=== PATIENT | female | born 1990 | race Caucasian/White ===

== ENCOUNTER 2016-10-02 14:01 | Emergency (ER) | payer OTHER ==
[2016-10-02] MEDS ORDERED: IBUPROFEN 800 MG TABLET PO ONE (16:17)
--- NOTE | 2016-10-02 16:22 | ER Document Report ---
HPI - HPI Patient complains to provider of: left knee pain Onset: Other - thursday Onset/Duration: Persistent Quality of pain: Achy Pain Level: 2 Context: Pt presents to the ED with c/o left knee pain since Thursday .She denies injury, reports the knee just started hurting. She doesn't remember twisting the knee, denies trauma. Denies pmh of injury. Reports the knee feels ok at rest but increased pain with walking. Associated Symptoms: None Exacerbated by: Walking Relieved by: Other - at rest Similar symptoms previously: No Recently seen / treated by doctor: No - REPRODUCTIVE Reproductive: DENIES: : - DERM Skin Color: Normal Past Medical History - General Information source: Patient Last Menstrual Period: 09/15/16 - Social History Smoking Status: Current Some Day Smoker Chew tobacco use (# tins/day): No Frequency of alcohol use: Rare Drug Abuse: None Occupation: [employer] Family History: None Patient has suicidal ideation: No Patient has homicidal ideation: No - Medical History Medical History: Negative Renal/ Medical History: Denies: Hx Peritoneal Dialysis Past Surgical History: Reports: Hx Appendectomy - Immunizations Hx Diphtheria, Pertussis, Tetanus Vaccination: No Vertical Provider Document - CONSTITUTIONAL Agree With Documented VS: Yes Exam Limitations: No Limitations General Appearance: WD/WN, No Apparent Distress - INFECTION CONTROL TRAVEL OUTSIDE OF THE [place] IN LAST 30 DAYS: No - HEENT HEENT: Atraumatic, Normocephalic - NECK Neck: Supple - RESPIRATORY Respiratory: Breath Sounds Normal, No Respiratory Distress O2 Sat by Pulse Oximetry: 97 - CARDIOVASCULAR Cardiovascular: Regular Rate - MUSCULOSKELETAL/EXTREMETIES Musculoskeletal/Extremeties: MAEW, FROM, Tender - anterior knee ttp, no erythema , no warmth, no obvious deformity or swelling, brisk cap refill - NEURO Level of Consciousness: Awake, Alert, Appropriate Motor/Sensory: No Motor Deficit - DERM Integumentary: Warm, Dry Adult Front & Back Diagram: 1 - c/o left anterior knee pain Course - Re-evaluation Re-evalutation: 10/02/16 17:26 pt instructed on neg xray, plan of care, importance of fu with pcp for recheck and possible referral to ortho as indicated - Vital Signs Vital signs: Temp Pulse Resp BP Pulse Ox 98.5 F 71 18 122/51 L 97 10/02/16 14:12 10/02/16 14:12 10/02/16 14:12 10/02/16 14:12 10/02/16 14:12 - Diagnostic Test Radiology reviewed: Image reviewed, Reports reviewed - neg xray Discharge - Discharge Clinical Impression: Left knee pain Qualifiers: Chronicity: acute Qualified Code(s): M25.562 - Pain in left knee Condition: Stable Disposition: HOME, SELF-CARE Instructions: Ice & Elevation ([facility]), Ibuprofen (General) ([facility]) Additional Instructions: *You have been evaluated for left knee pain *Rest/Ice/Elevate *Follow up with your primary care provider within one week for recheck. *Follow up with orthopedics for continued pain-call for an appointment *Take medication as prescribed *Return to ED for worsening condition, changes, needs Prescriptions: Ibuprofen [Motrin 800 mg Tablet] 800 mg PO TID #30 tablet Forms: Return to Work Referrals: SHARAN RUDD MD [Primary Care Provider] - Follow up as needed
--- NOTE | 2016-10-02 17:20 | RADIOLOGY REPORT (SQ) ---
EXAM DESCRIPTION: KNEE LEFT 4 VIEW COMPLETED DATE/TIME: 10/02/2016 4:44 pm REASON FOR STUDY: left knee pain COMPARISON: None. NUMBER OF VIEWS: Four views. TECHNIQUE: AP, lateral, and both oblique radiographic images acquired of the left knee. LIMITATIONS: None. FINDINGS: MINERALIZATION: Normal. BONES: No acute fracture or dislocation. No worrisome bone lesions. JOINT: No effusion. SOFT TISSUES: No soft tissue swelling. No radio-opaque foreign body. OTHER: No other significant finding. IMPRESSION: NEGATIVE STUDY OF THE LEFT KNEE. NO RADIOGRAPHIC EVIDENCE OF ACUTE INJURY. TECHNICAL DOCUMENTATION: JOB ID: [id number] [employer]- All Rights Reserved
[2016-10-02 17:56] VITALS: BP 115/68
== END 2016-10-02 17:50 | disposition home or self-care (01) ==
LOC: ER 14:01
DX: M25.562 Pain in left knee (principal); F17.200 Nicotine dependence, unspecified, uncomplicated
CPT/HCPCS: 99283

== ENCOUNTER 2016-11-26 01:43 | Emergency (ER) | payer OTHER ==
[2016-11-26 02:01] VITALS: BP 114/63
[2016-11-26] MEDS ORDERED: NAPROXEN 250 MG TABLET PO ONE (02:18)
[2016-11-26] MEDS ORDERED: PREDNISONE 20 MG TABLET PO ONE (02:18)
--- NOTE | 2016-11-26 02:19 | ER Document Report ---
ED General - General Chief Complaint: Leg pain/ swelling Stated Complaint: KNEE, LEG SWELLING Time Seen by Provider: 11/26/16 02:12 Mode of Arrival: Ambulatory Notes: 26-year-old female presents with 1 month duration of left knee pain and swelling. Patient notes symptoms worsened tonight. Patient is able to ambulate but notes it hurts to walk. Denies any significant injury that she can remember. Patient was told to follow-up with orthopedics but has not done so TRAVEL OUTSIDE OF THE [place] IN LAST 30 DAYS: No - HPI Onset: Other - 1 month duration Onset/Duration: Persistent Quality of pain: Achy Severity: Mild Pain Level: 1 Associated symptoms: Leg swelling Exacerbated by: Movement, Walking Relieved by: Denies Similar symptoms previously: Yes Recently seen / treated by doctor: Yes - Related Data Allergies/Adverse Reactions: No Known Allergies Allergy (Verified 10/02/16 14:12) Past Medical History - Social History Smoking Status: Never Smoker Cigarette use (# per day): No Chew tobacco use (# tins/day): No Smoking Education Provided: No Family History: None Renal/ Medical History: Denies: Hx Peritoneal Dialysis Past Surgical History: Reports: Hx Appendectomy - Immunizations Hx Diphtheria, Pertussis, Tetanus Vaccination: No Review of Systems - Review of Systems Notes: REVIEW OF SYSTEMS: CONSTITUTIONAL : Denies fever, chills, or sweats. Denies recent illness. EENT: Denies eye, ear, throat, or mouth pain or symptoms. Denies nasal or sinus congestion or discharge. Denies throat, tongue, or mouth swelling or difficulty swallowing. CARDIOVASCULAR: Denies chest pain. Denies palpitations or racing or irregular heart beat. Denies ankle edema. RESPIRATORY: Denies cough, cold, or chest congestion. Denies shortness of breath, difficulty breathing, or wheezing. GASTROINTESTINAL: Denies abdominal pain or distention. Denies nausea, vomiting , or diarrhea. Denies blood in vomitus, stools, or per rectum. Denies black, tarry stools. Denies constipation. GENITOURINARY: Denies difficulty urinating, painful urination, burning, frequency, blood in urine, or discharge. FEMALE GENITOURINARY: Denies vaginal bleeding, heavy or abnormal periods, irregular periods. Denies vaginal discharge or odor. MUSCULOSKELETAL: Admits to left knee pain swelling SKIN: Denies rash, lesions or sores. HEMATOLOGIC : Denies easy bruising or bleeding. LYMPHATIC: Denies swollen, enlarged glands. NEUROLOGICAL: Denies confusion or altered mental status. Denies passing out or loss of consciousness. Denies dizziness or lightheadedness. Denies headache. Denies weakness or paralysis or loss of use of either side. Denies problems with gait or speech. Denies sensory loss, numbness, or tingling. Denies seizures. PSYCHIATRIC: Denies anxiety or stress. Denies depression, suicidal ideation, or homicidal ideation. ALL OTHER SYSTEMS REVIEWED AND NEGATIVE. PHYSICAL EXAMINATION: GENERAL: Well-appearing, well-nourished and in no acute distress. HEAD: Atraumatic, normocephalic. EYES: Pupils equal round and reactive to light, extraocular movements intact, conjunctiva are normal. ENT: Nares patent, oropharynx clear without exudates. Moist mucous membranes. NECK: Normal range of motion, supple without lymphadenopathy LUNGS: Breath sounds clear to auscultation bilaterally and equal. No wheezes rales or rhonchi. HEART: Regular rate and rhythm without murmurs ABDOMEN: Soft, nontender, nondistended abdomen. No guarding, no rebound. No masses appreciated. Female : deferred Musculoskeletal: Mild edema noted of the left knee no calf tenderness no inguinal tenderness, no erythema no warmth to the fluctuance. Patient appears to have a small effusion. Patient is able to ambulate with no difficulty NEUROLOGICAL: Cranial nerves grossly intact. Normal speech, normal gait. Normal sensory, motor exams PSYCH: Normal mood, normal affect. SKIN: Warm, Dry, normal turgor, no rashes or lesions noted. Dictation was performed using [employer] voice recognition software Physical Exam - Vital signs Vitals: Temp Pulse Resp BP Pulse Ox 98.4 F 67 16 114/63 99 11/26/16 02:00 11/26/16 02:00 11/26/16 02:00 11/26/16 02:00 11/26/16 02:00 Course - Re-evaluation Re-evalutation: 11/26/16 04:27 Patient will be treated with steroids anti-inflammatories for her knee pain and edema. She must follow-up with orthopedic physician for further evaluation and care. Patient states she understands and will do so After performing a Medical Screening Examination, I estimate there is LOW risk for INTRACRANIAL HEMORRHAGE, UNSTABLE SPINE FRACTURE, CENTRAL CORD SYNDROME, CAUDA EQUINA, THORACIC AORTIC DISSECTION, PNEUMOTHORAX, PERFORATED BOWEL, RUPTURED ABDOMINAL AORTIC ANEURYSM, ACUTE TENDON RUPTURE, COMPARTMENT SYNDROME, or OPEN FRACTURE, thus I consider the discharge disposition reasonable. Also, there is no evidence or peritonitis, sepsis, or toxicity. I have reevaluated this patient multiple times and no significant life threatening changes are noted. The patient and I have discussed the diagnosis and risks, and we agree with discharging home to follow-up with their primary doctor with the understanding that symptoms and presentations can change. We also discussed returning to the Emergency Department immediately if new or worsening symptoms occur. We have discussed the symptoms which are most concerning (e.g., bloody stool, fever, changing or worsening pain, vomiting) that necessitate immediate return. - Vital Signs Vital signs: Temp Pulse Resp BP Pulse Ox 98.4 F 67 16 114/63 99 11/26/16 02:00 11/26/16 02:00 11/26/16 02:00 11/26/16 02:00 11/26/16 02:00 Discharge - Discharge Clinical Impression: Swelling of left knee joint Left knee pain Qualifiers: Chronicity: acute Qualified Code(s): M25.562 - Pain in left knee Condition: Stable Disposition: HOME, SELF-CARE Instructions: Suspected Internal Knee Injury ([facility]) Prescriptions: Prednisone [Deltasone 20 mg Tablet] 3 tab PO DAILY 5 Days Referrals: MEAGAN ARRINGTON DO [ACTIVE STAFF] - Follow up tomorrow
== END 2016-11-26 02:45 | disposition home or self-care (01) ==
LOC: ER 01:43
DX: M25.562 Pain in left knee (principal); M25.462 Effusion, left knee
CPT/HCPCS: 99283; J7512

== ENCOUNTER 2017-07-20 17:07 | Emergency (ER) | payer OTHER ==
--- NOTE | 2017-07-20 19:25 | ER Document Report ---
HPI - HPI Pain Level: 1 Context: Patient is a 27 year old female who presents to the ED complaining of cough. She was referred here by her employer to be checked out and given a work note. She states that she has had symptoms for approximately a week and a half. She admits to rhinitis, sore throat, nonproductive cough. She denies any shortness of breath, dyspnea on exertion, chest pain. Otherwise healthy female - EENT EENT: REPORTS: Sore Throat - last thursday - CARDIOVASCULAR Cardiovascular: REPORTS: Chest pain - only with coughing. - RESPIRATORY Respiratory: REPORTS: Coughing - continues non productive. DENIES: Trouble Breathing - Thursday she said yes - REPRODUCTIVE LMP: 1 week Reproductive: DENIES: : Past Medical History - Social History Smoking Status: Former Smoker Chew tobacco use (# tins/day): No Frequency of alcohol use: Rare Drug Abuse: None Family History: None Patient has suicidal ideation: No Patient has homicidal ideation: No Renal/ Medical History: Denies: Hx Peritoneal Dialysis Past Surgical History: Reports: Hx Appendectomy - Immunizations Hx Diphtheria, Pertussis, Tetanus Vaccination: No Vertical Provider Document - CONSTITUTIONAL Agree With Documented VS: Yes Notes: PHYSICAL EXAM GENERAL: Alert, interacts well. HEENT: NCAT, pale conjunctiva, extraocular movements intact, pupils PERRL. external ear normal, no evidence of external auditory canal tenderness, blood/ drainage, cerumen impaction, TM intact without evidence of effusion, bulging, injection, MMM, Uvula midline. Airway patent. No evidence of tonsillar enlargement, peritonsillar abscess, retropharyngeal abscess. LUNGS: Clear to auscultation bilaterally, no wheezes, rales, or rhonchi. No respiratory distress. HEART: Regular rate and rhythm. No murmurs, gallops, or rubs. ABDOMEN: Soft, nondistended, nontender. No guarding, rebound, or rigidity.. Bowel sounds present in all 4 quadrants. EXTREMITIES: Moves all 4 extremities spontaneously. No edema, radial and dorsalis pedis pulses 2/4 bilaterally. No cyanosis. NEUROLOGICAL: Alert and oriented x4. Normal speech. PSYCH: Normal affect, normal mood. SKIN: Warm, dry, normal turgor. No rashes or lesions noted. - INFECTION CONTROL TRAVEL OUTSIDE OF THE [place] IN LAST 30 DAYS: No - RESPIRATORY O2 Sat by Pulse Oximetry: 100 Course - Re-evaluation Re-evalutation: 07/20/17 20:32 Patient is a 27-year-old female is hemodynamically stable, no acute distress and afebrile. Presentation is most consistent with a viral upper respiratory infection. Patient is overall well appearance, vitals within normal limits, well-hydrated. Patient denies any headache, neck pain, and has no evidence of meningismus on examination. Lungs are clear bilaterally. No evidence of respiratory distress. Based on clinical exam and history, I do not suspect an acute pneumonia, meningitis, strep pharyngitis, or an acute encephalitis. Chest x-ray without any evidence of acute infiltrate. No laboratory or imaging testing is indicated at this time. Will discharge patient with return precautions and followup recommendations. They are in agreement this plan have verbalized understanding return precautions. - Vital Signs Vital signs: Temp Pulse Resp BP Pulse Ox 98.5 F 68 16 114/71 100 07/20/17 17:32 07/20/17 17:32 07/20/17 17:32 07/20/17 17:32 07/20/17 17:32 - Diagnostic Test Radiology reviewed: Image reviewed, Reports reviewed Discharge - Discharge Clinical Impression: URI (upper respiratory infection) Qualifiers: URI type: unspecified viral URI Qualified Code(s): J06.9 - Acute upper respiratory infection, unspecified Condition: Good Disposition: HOME, SELF-CARE Additional Instructions: Your symptoms are most likely due to a viral infection it should resolve over the next 7-14 days. For nasal congestion: I would recommend that you get over- the-counter oxymetazoline also known is afrin. Use only per bottle instructions and be sure to never use this for more than 3 days if you can develop severe rebound congestion. You may also use tylenol or ibuprofen as needed for aches and thorat discomfort. Please be sure to drink plenty of fluids and get rest. Return to the emergency department he began having difficulty breathing, chest pain, persistent vomiting, or any other symptoms that are concerning to you. It is also recommended that you start an [id number] antihistamine with decongestant such as Kimberly-D, Claritin-D to help with postnasal drip symptoms Forms: Return to Work Referrals: SHARAN RUDD MD [Primary Care Provider] - Follow up in 1 week
--- NOTE | 2017-07-20 20:10 | RADIOLOGY REPORT (SQ) ---
EXAM DESCRIPTION: CHEST PA/LAT COMPLETED DATE/TIME: 07/20/2017 7:34 pm REASON FOR STUDY: cough COMPARISON: 08/09/2008 EXAM PARAMETERS: NUMBER OF VIEWS: two views TECHNIQUE: Digital Frontal and Lateral radiographic views of the chest acquired. RADIATION DOSE: NA LIMITATIONS: none FINDINGS: LUNGS AND PLEURA: No opacities, masses or pneumothorax. No pleural effusion. MEDIASTINUM AND HILAR STRUCTURES: No masses or contour abnormalities. HEART AND VASCULAR STRUCTURES: Heart normal size. No evidence for failure. BONES: No acute findings. HARDWARE: None in the chest. OTHER: No other significant finding. IMPRESSION: NO SIGNIFICANT RADIOGRAPHIC FINDING IN THE CHEST. TECHNICAL DOCUMENTATION: JOB ID: [id number]- All Rights Reserved Reading location - IP/workstation name: [email or web address]
[2017-07-20 20:41] VITALS: BP 106/67
== END 2017-07-20 20:41 | disposition home or self-care (01) ==
LOC: ER 17:07
DX: J06.9 Acute upper respiratory infection, unspecified (principal); R05 Cough; J31.0 Chronic rhinitis; J02.9 Acute pharyngitis, unspecified; Z87.891 Personal history of nicotine dependence
CPT/HCPCS: 71046; 99283

== ENCOUNTER 2017-11-15 20:10 | Emergency (ER) | payer OTHER ==
[2017-11-15] MEDS ORDERED: CYCLOBENZAPRINE HCL 10 MG TABLET PO ONE (21:22)
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
[2017-11-15] MEDS ORDERED: HYDROCODONE/ACETAMINOPHEN 5-325 MG (6 TAB/ER DISP) PO PRN (22:32)
[2017-11-15 23:02] VITALS: BP 103/66
== END 2017-11-15 22:45 | disposition home or self-care (01) ==
LOC: ER 20:10
DX: M54.2 Cervicalgia (principal); M54.89 Other dorsalgia; R20.0 Anesthesia of skin; R20.2 Paresthesia of skin; V49.00XA Driver injured in collision with unspecified motor vehicles in nontraffic accident, initial encounter; Y92.481 Parking lot as the place of occurrence of the external cause; F17.200 Nicotine dependence, unspecified, uncomplicated
CPT/HCPCS: 72070; 99283

== ENCOUNTER 2019-02-20 23:44 | Emergency (ER) | payer OTHER ==
[2019-02-21] MEDS ORDERED: LIDOCAINE 1% INJ-PF (10 MG/ML) 30 ML SDV INJ ONE (00:28)
[2019-02-21] MEDS ORDERED: DIPH/PERTUSS(ACELL)/TETANUS VAC/PF 0.5 ML SYR (>=10YO) IM ONE (00:40)
--- NOTE | 2019-02-21 00:52 | ER Document Report ---
HPI - HPI Time Seen by Provider: 02/21/19 00:23 Pain Level: 4 Notes: Patient is a 28-year-old female no significant past medical history presents complaining of plantar foot laceration by a kitchen knife prior to arrival. Patient states that she is cutting an apple when the knife fell the floor and somehow she cut her plantar foot by stepping on it. Patient states that the knife did not go deep, but did get the skin. She has been able to ambulate, but has pain in that area. The knife was otherwise clean. Unknown last tetanus. Denies drug allergies. Denies any headache, fever, neck pain, URI, sore throat, chest pain, palpitations, syncope, cough, shortness of breath, wheeze, dyspnea, abdominal pain, nausea/vomiting/diarrhea, urinary retention, dysuria, hematuria, loss of control of bowel or bladder, numbness/tingling, muscle paralysis/weakness, or rash. - ROS Systems Reviewed and Negative: Yes All other systems reviewed and negative - REPRODUCTIVE Reproductive: DENIES: : Past Medical History - Social History Smoking Status: Current Every Day Smoker Chew tobacco use (# tins/day): No Frequency of alcohol use: Rare Drug Abuse: None Family History: None Patient has suicidal ideation: No Patient has homicidal ideation: No Renal/ Medical History: Denies: Hx Peritoneal Dialysis Past Surgical History: Reports: Hx Appendectomy - Immunizations Hx Diphtheria, Pertussis, Tetanus Vaccination: No Vertical Provider Document - CONSTITUTIONAL Agree With Documented VS: Yes Notes: PHYSICAL EXAMINATION: GENERAL: Well-appearing, well-nourished and in no acute distress. LUNGS: Breath sounds clear to auscultation bilaterally and equal. No wheezes rales or rhonchi. HEART: Regular rate and rhythm without murmurs, rubs, gallops. Musculoskeletal: Rt foot/ankle: No ecchymosis, swelling, or deformity. FROM to passive/active. Strength 5+/5. N/V intact distal. No bony tenderness of the foot. + superficial, linear, narrow laceration noted. No active bleeding. No obvious foreign body. Extremities: No cyanosis, clubbing, or edema b/l. Peripheral pulses 2+. Capillary refill less than 3 seconds. NEUROLOGICAL: Normal speech, limping gait. Normal sensory, motor exams PSYCH: Normal mood, normal affect. SKIN: see above - INFECTION CONTROL TRAVEL OUTSIDE OF THE [place] IN LAST 30 DAYS: No Course - Re-evaluation Re-evalutation: 02/21/19 Patient is an afebrile, well-hydrated, 28-year-old female who presents to the ED with a laceration to her rt plantar foot. Vitals are acceptable. PE is otherwise unremarkable for any neurovascular compromise, obvious tendon/ligament rupture, obvious fracture/dislocation, septic joint. Patient is nontoxic-appearing and is tolerating p.o. without difficulties. Wound was thoroughly irrigated and cleansed. Wound edges were approximated appropriately utilizing 3 simple interrupted sutures. Wound dressing was placed and wound instructions reviewed. Patient tolerated procedure well without any complications. Tetanus was updated today. No further labs or imaging warranted. Sutures will need removed in 10-12 days. Recheck with your PCM in 2-3 days. Consider consult orthopedics if needed. Return to the ED with any worsening/concerning symptoms otherwise as reviewed in discharge. Patient is in agreement. - Vital Signs Vital signs: Temp Pulse Resp BP Pulse Ox 98.1 F 67 14 106/42 L 100 02/20/19 23:49 02/20/19 23:49 02/20/19 23:49 02/20/19 23:49 02/20/19 23:49 Procedures - Laceration/Wound Repair Right Foot Wound length (cm): 2 Wound's Depth, Shape: Superficial, Linear Laceration pre-procedure: Sterile PPE donned, Sterile drapes applied, Other - chlorhexadine/saline Anesthetic type: 1% Lidocaine Volume Anesthetic (mLs): 4 Wound explored: Clean, No foreign body removed Irrigated w/ Saline (mLs): 200 Wound Repaired With: Sutures Suture Size/Type: 4:0, Nylon Number of Sutures: 3 Layer Closure?: No Post-procedure wound care: Sterile dressing applied Post-procedure NV exam normal: Yes Complications: No Discharge - Discharge Clinical Impression: Laceration of right foot Qualifiers: Encounter type: initial encounter Qualified Code(s): S91.311A - Laceration without foreign body, right foot, initial encounter Condition: Stable Disposition: HOME, SELF-CARE Instructions: Antibiotic Ointment Protection ([facility]), Laceration Care ([facility]), Soap Cleansing ([facility]), Tetanus Immunization Given ([facility]) Additional Instructions: Do not shower or bathe for 24 hours. After 24 hours you may shower but no submersion of the wound under water. Keep the original dressing on the wound for 24 hours unless the drainage soaks through. Change the dressing daily thereafter and keep the knots of the suture material clean from any dried discharge. You may leave the wound open to the air once there is no more discharge. See your PCM in 2-3 days for a recheck. Monitor for any signs of worsening pain or redness, purulent drainage, streaks, and/or fever. Return to the ED if noticing any of the above symptoms or as needed. Take medications as directed. Your sutures will need to be removed in 10-12 days. Prescriptions: Cephalexin Monohydrate [Keflex 500 mg Capsule] 500 mg PO TID #21 capsule Forms: Smoking Cessation Education, Return to Work Referrals: SHARAN RUDD MD [Primary Care Provider] - Follow up as needed MARJORIE ESPINOSA JR, DO [ACTIVE PROVISIONAL STAFF] - Follow up as needed
[2019-02-21 02:31] VITALS: BP 101/62
== END 2019-02-21 02:31 | disposition home or self-care (01) ==
LOC: ER 23:44
DX: S91.311A Laceration without foreign body, right foot, initial encounter (principal); W26.0XXA Contact with knife, initial encounter; Y93.G1 Activity, food preparation and clean up; F17.200 Nicotine dependence, unspecified, uncomplicated; Z23 Encounter for immunization
CPT/HCPCS: 90471; 90715; 99282

== ENCOUNTER 2019-03-23 08:52 | Emergency (ER) | payer OTHER ==
[2019-03-23] MEDS ORDERED: ONDANSETRON HCL INJ/PF 4 MG/2 ML SDV IV ONE (09:05)
[2019-03-23] MEDS ORDERED: NORMAL SALINE 1000 ML 1,000 ML IV ONE ×2 (09:08→19:53)
--- NOTE | 2019-03-23 09:09 | ER Document Report ---
ED Medical Screen (RME) - General Chief Complaint: possible syncope Stated Complaint: SYNCOPE Time Seen by Provider: 03/23/19 09:04 Primary Care Provider: SHARAN RUDD MD [Primary Care Provider] - Follow up as needed Notes: Patient is a 28-year-old female who presents to the emergency department for a possible syncopal episode. Patient went to work yesterday feeling fine and she had an hour of feeling nauseous. She did not end up throwing up. She went home and had some chicken noodle soup. She went to sleep and when she woke up she had urinated on herself and also had a dry mouth and bloody nose. Patient states that she just finished her last menstrual cycle and she states that it was quite heavy. Patient denies any pain at this time. Exam: Soft, nontender abdomen. Awake alert and oriented. I have greeted and performed a rapid initial assessment of this patient. A comprehensive ED assessment and evaluation of the patient, analysis of test results and completion of medical decision making process will be conducted by an additional ED providers. TRAVEL OUTSIDE OF THE [place] IN LAST 30 DAYS: No - Related Data Allergies/Adverse Reactions: No Known Allergies Allergy (Verified 03/23/19 09:08) Home Medications: Ibuprofen Past Medical History - Social History Frequency of alcohol use: None Drug Abuse: None Renal/ Medical History: Denies: Hx Peritoneal Dialysis Past Surgical History: Reports: Hx Appendectomy - Immunizations Hx Diphtheria, Pertussis, Tetanus Vaccination: No Physical Exam - Vital signs Vitals: Temp Pulse Resp BP Pulse Ox 98.5 F 55 L 20 116/55 L 98 03/23/19 08:56 03/23/19 08:56 03/23/19 08:56 03/23/19 08:56 03/23/19 08:56 Course - Vital Signs Vital signs: Temp Pulse Resp BP Pulse Ox 98.5 F 55 L 18 95/57 L 98 03/23/19 08:56 03/23/19 08:56 03/23/19 21:01 03/23/19 21:01 03/23/19 21:01 - Laboratory Result Diagrams: 03/23/19 09:58 03/23/19 09:58 Laboratory results interpreted by me: 03/23/19 03/23/19 03/23/19 09:58 09:58 09:58 WBC 3.4 L Glucose 73 L Leukocyte Esterase Rfl SMALL H Doctor's Discharge - Discharge Clinical Impression: Syncope, Bradycardia Referrals: SHARAN RUDD MD [Primary Care Provider] - Follow up as needed
--- NOTE | 2019-03-23 09:28 | ER Document Report ---
ED Syncope and Near Syncope <JOSEPHWILLIADAM - Last Filed: 03/24/19 03:03> - General TRAVEL OUTSIDE OF THE [place] IN LAST 30 DAYS: No - Related Data Home Medications: Ibuprofen <NING SUBRAMANIAN - Last Filed: 03/24/19 14:07> - General Chief Complaint: Syncope Stated Complaint: SYNCOPE Time Seen by Provider: 03/23/19 09:04 Primary Care Provider: SHARAN RUDD MD [Primary Care Provider] - Follow up as needed Notes: 28-year-old female presents with possible syncopal episode. Patient states yesterday she was at work when she became nauseous, this lasted approximately 1 hour. Patient states she came home and had chicken noodle soup. Patient states she went to the bathroom and woke up on the floor, with bloody nose having urinated on herself. Patient states she became nauseous again this morning and was in bathroom when she woke up again on floor with her mother over. Patient states she has had episodes of near syncope as a teenager when she would not eat enough. Patient denies any chest pain, dyspnea, vomiting, fevers. (NING SUBRAMANIAN) - Related Data Allergies/Adverse Reactions: No Known Allergies Allergy (Verified 03/23/19 09:08) Past Medical History - Social History Smoking Status: Current Some Day Smoker Frequency of alcohol use: None Drug Abuse: None Family History: None Patient has suicidal ideation: No Patient has homicidal ideation: No Renal/ Medical History: Denies: Hx Peritoneal Dialysis Past Surgical History: Reports: Hx Appendectomy - Immunizations Hx Diphtheria, Pertussis, Tetanus Vaccination: No <NING SUBRAMANIAN - Last Filed: 03/24/19 14:07> Review of Systems <NING SUBRAMANIAN - Last Filed: 03/24/19 14:07> - Review of Systems Notes: Constitutional: Negative for fever. HENT: Negative for sore throat. Eyes: Negative for visual changes. Cardiovascular: Negative for chest pain. Respiratory: Negative for shortness of breath. Gastrointestinal: Positive for nausea. Negative for abdominal pain, vomiting or diarrhea. Genitourinary: Negative for dysuria. Musculoskeletal: Negative for back pain. Skin: Negative for rash. Neurological: Positive for syncope. Negative for headaches, weakness or numbness. 10 point ROS negative except as marked above and in HPI. (NING SUBRAMANIAN) Physical Exam <NING SUBRAMANIAN - Last Filed: 03/24/19 14:07> - Vital signs Vitals: Temp Pulse Resp BP Pulse Ox 98.5 F 55 L 20 116/55 L 98 03/23/19 08:56 03/23/19 08:56 03/23/19 08:56 03/23/19 08:56 03/23/19 08:56 - Notes Notes: GENERAL: Well-appearing, well-nourished and in no acute distress. HEAD: Atraumatic, normocephalic. EYES: Pupils equal round and reactive to light, extraocular movements intact, sclera anicteric, conjunctiva are normal. ENT: Oropharynx clear without exudates. Moist mucous membranes. NECK: Normal range of motion, supple without lymphadenopathy or JVD. LUNGS: Breath sounds clear to auscultation bilaterally and equal. No wheezes rales or rhonchi. HEART: Regular rate and rhythm without murmurs, rubs or gallops. ABDOMEN: Soft, nontender. No guarding, no rebound. No masses appreciated. EXTREMITIES: Normal range of motion, no pitting or edema. No clubbing or cyanosis. NEUROLOGICAL: Cranial nerves II through XII grossly intact. Normal speech, normal gait. No facial droop. No tongue deviation. Sensory intact bilaterally. Power Plant Electrician strength equal bilaterally. Upper/lower extremity strength equal bilaterally. PSYCH: Normal mood, normal affect. SKIN: Warm, Dry, normal turgor, no rashes or lesions noted. (NING SUBRAMANIAN) Course - Laboratory Result Diagrams: 03/23/19 09:58 03/23/19 09:58 <ADAM HARTMAN - Last Filed: 03/24/19 03:03> - Laboratory Result Diagrams: 03/23/19 09:58 03/23/19 09:58 <NING SUBRAMANIAN - Last Filed: 03/24/19 14:07> - Re-evaluation Re-evalutation: 03/23/19 22:00 Patient's blood pressure was initially in the 80s when I evaluated her at bedside initially, however she has responded to IV fluids. Her heart rate is currently 59, blood pressure 106 systolic, patient is currently asymptomatic. Reportedly earlier patient had a heart rate showing bradycardia down to 32, her lowest recorded blood pressure here is 79, she did receive atropine 0.5 mg IV once but she is not currently requiring pacing. She has no current complaints. 03/23/19 22:25 I have discussed with patient, because of delay in transfer patient is requesting transfer to [place], I did call and speak with Dr. Gilliam cardiology, he does accept patient for transfer. They will call back with the bed assignment. Patient states appreciation and agreement. 03/24/19 03:04 Patient has been rechecked twice without decompensation, she did get lightheaded once but did not develop hypotension, severe bradycardia, diaphoresis, or chest pain. Transport team is now at bedside, she is going to [place], no sign ificant change from prior, patient reevaluated bedside at this time. Stable for transport. (ADAM HARTMAN) 03/23/19 Presentation of syncope of unclear etiology. Patient normotensive, alert, without focal neurologic deficits at time of arrival. Denies syncope was during exertion. No preceding symptoms of palpitations, chest pain, or shortness of breath. Patient asymptomatic at time of arrival. *Patient denies any family history of sudden cardiac , personal history of of structural heart disease. Patient denies any symptoms to suggest an acute PE, DE, TAD, SAH, seizure, or acute GI bleed as the etiology of their syncope today. On exam, no murmurs to suggest critical aortic stenosis as possible etiology. Based on overall clinical history, exam findings, vitals, and patients appearance, I feel it is safe for patient to be discharged home at this time with close outpatient follow-up and strict return precautions. Patient is in agreement with this plan, has verbalized indications for return to ED, and questions have been answered. 03/23/19 09:58 EKG shows sinus bradycardia at 42 without evidence of HCOM, right heart strain, ST changes to suggest ischemia, prolong QTc, delta wave, epsilon wave, or Brugada syndrome. 03/23/19 10:15 HR in 30s. Crash cart to room. Pt placed on pacer pads. 03/23/19 10:24 Discussed with attending, Dr. Natarajan. Recommends 0.5 mg of atropine, 1 L bolus, and 3 page rhythm strip. Orders placed and RN asked for 3 page rhythm strip. 03/23/19 11:02 HR improved to 60-70. 03/23/19 11:06 Discussed with hospitalist, Dr. Frank, who requested calf skinner be called since pt may require pacemaker and requested be called back. 03/23/19 11:10 Spoke to calf skinner, Dr. Davis, who states pt needs to go to a place with EP. Called hospitalist who agrees. 03/23/19 11:15 Discussed transfer to pt and pt's mother. Agreeable with plan of care. Transfer center at [facility] contacted. Spoke to Wayne who will page out to EP. 03/23/19 12:[address] Luis Lux, calf skinner at [facility], who accepted pt for transfer to tele bed. Wayne at transfer center states they will call back with bed assignment and to call back if pt deteriorates. 03/23/19 17:25 Pt's HR continuing to stay in 50-60s. Pt reports irritation to pacer pads and requesting to take them off due to allergy. Removed for now but RN will continue to monitor and if HR drops below 50 pacer pads to be placed back on. (NING SUBRAMANIAN) - Vital Signs Vital signs: Temp Pulse Resp BP Pulse Ox 98.4 F 57 L 16 118/57 L 98 03/24/19 02:50 03/24/19 02:50 03/24/19 02:50 03/24/19 02:50 03/24/19 02:50 - Laboratory Laboratory results interpreted by me: 03/23/19 03/23/19 03/23/19 09:58 09:58 09:58 WBC 3.4 L Glucose 73 L Leukocyte Esterase Rfl SMALL H Discharge <ADAM HARTMAN - Last Filed: 03/24/19 03:03> <NING SUBRAMANIAN - Last Filed: 03/24/19 14:07> - Discharge Clinical Impression: Bradycardia Syncope Qualifiers: Syncope type: unspecified Qualified Code(s): R55 - Syncope and collapse Disposition: [facility] Referrals: SHARAN RUDD MD [Primary Care Provider] - Follow up as needed
[2019-03-23] MEDS ORDERED: ATROPINE SULFATE INJ 1 MG/1 ML VIAL IV ONE (10:12)
[2019-03-23] MEDS ORDERED: ATROPINE SULFATE INJ 0.4 MG/1 ML VIAL IV ONE (10:15)
[2019-03-23 10:21] LABS: ABSOLUTE EOSINOPHILS # (AUTO) 0.1 10^3/uL (0.0-0.6); ABSOLUTE LYMPHOCYTES (AUTO) 1.1 10^3/uL (0.5-4.7); ABSOLUTE MONOCYTES (AUTO) 0.2 10^3/uL (0.1-1.4); BASOPHILS % (AUTO) 0.6 % (0-2); EOSINOPHILS % (AUTO) 1.5 % (0-6); HEMATOCRIT 39.7 % (36.0-47.0); HEMOGLOBIN 13.6 g/dL (12.0-15.5); LYMPHOCYTES % (AUTO) 33.1 % (13-45); MEAN CORPUSCULAR HEMOGLOBIN 30.7 pg (27.0-33.4); MEAN CORPUSCULAR HGB CONC 34.2 g/dL (32.0-36.0); MEAN CORPUSCULAR VOLUME 90 fl (80-97); MONOCYTES % (AUTO) 6.3 % (3-13); PLATELET COUNT 161 10^3/uL (150-450); RED BLOOD COUNT 4.43 10^6/uL (3.72-5.28); RED CELL DISTRIBUTION WIDTH 13.8 % (11.5-14.0); SEGMENTED NEUTROPHILS % (AUTO) 58.5 % (42-78); TOTAL CELLS COUNTED % (AUTO) 100 %; WHITE BLOOD COUNT 3.4 10^3/uL (4.0-10.5)
[2019-03-23 10:26] LABS: APPEARANCE,URINE CLEAR; BILIRUBIN,URINE NEGATIVE (NEGATIVE); COLOR,URINE YELLOW; GLUCOSE, URINE NEGATIVE (NEGATIVE); KETONES,URINE NEGATIVE (NEGATIVE); PROTEIN,URINE NEGATIVE (NEGATIVE); URINE SPECIFIC GRAVITY 1.014; UROBILINOGEN,URINE NEGATIVE mg/dL (<2.0)
[2019-03-23 10:40] LABS: ALBUMIN 4.1 g/dL (3.5-5.0); ALKALINE PHOSPHATASE 43 U/L (38-126); ANION GAP 6 (5-19); ASPARTATE AMINO TRANSFERASE 19 U/L (14-36); BLOOD UREA NITROGEN 12 mg/dL (7-20); CALCIUM 9.1 mg/dL (8.4-10.2); CARBON DIOXIDE 28 mmol/L (22-30); CHLORIDE 105 mmol/L (98-107); GLUCOSE 73 mg/dL (75-110)
--- NOTE | 2019-03-23 13:41 | EKG REPORT ---
SEVERITY:- OTHERWISE NORMAL ECG - SINUS BRADYCARDIA : Confirmed by: Wes Mahoney MD 23-Mar-2019 13:40:44
[2019-03-24 03:05] VITALS: BP 118/57
== END 2019-03-24 03:10 | disposition short-term general hospital (02) ==
LOC: ER 08:52
DX: R55 Syncope and collapse (principal); I51.9 Heart disease, unspecified; R00.1 Bradycardia, unspecified; R11.0 Nausea; F17.200 Nicotine dependence, unspecified, uncomplicated
CPT/HCPCS: 93005; 99285; 96361; 96374; 96375; 36415; 83690; 83735; 84703; 85025; 80053; 81001; 84484; 93010; J0461; J2405; J7030

== ENCOUNTER 2019-04-01 09:09 | Emergency (ER) | payer OTHER ==
[2019-04-01] MEDS ORDERED: NORMAL SALINE 1000 ML 1,000 ML IV ONE ×2 (09:29→16:38)
[2019-04-01] MEDS ORDERED: RINGERS SOLUTION,LACTATED 1,000 ML IV ONE (09:30)
--- NOTE | 2019-04-01 09:37 | ER Document Report ---
ED Medical Screen (RME) - General Chief Complaint: Passed Out Prior to Arrival Stated Complaint: NAUSEA,DIZZY Time Seen by Provider: 04/01/19 09:28 Primary Care Provider: SHARAN RUDD MD [Primary Care Provider] - Follow up as needed Mode of Arrival: Ambulatory Information source: Patient Notes: 28-year-old female presents to ED for syncopal episode this morning. She had a syncopal episode last week and was transferred to [facility] and was discharged home with a heart monitor and medications. Patient states the prescribed her theodur she could not afford to peanut picker. Patient states she just had a bowel movement this morning when she did pass out this morning but she had had this already previously. Patient is alert and oriented she did vagal while getting her IV started and became very pale but is back to her normal color after taking deep breaths. I have greeted and performed a rapid initial assessment of this patient. A comprehensive ED assessment and evaluation of the patient, analysis of test results and completion of medical decision making process will be conducted by an additional ED providers. TRAVEL OUTSIDE OF THE [place] IN LAST 30 DAYS: No - Related Data Allergies/Adverse Reactions: No Known Allergies Allergy (Verified 04/01/19 09:16) Home Medications: ibuprofen prn Past Medical History - Social History Chew tobacco use (# tins/day): No Frequency of alcohol use: Rare Drug Abuse: None Renal/ Medical History: Denies: Hx Peritoneal Dialysis Past Surgical History: Reports: Hx Appendectomy - Immunizations Hx Diphtheria, Pertussis, Tetanus Vaccination: No Physical Exam - Vital signs Vitals: Temp Pulse Resp BP Pulse Ox 97.9 F 66 20 112/56 L 100 04/01/19 09:13 04/01/19 09:13 04/01/19 09:13 04/01/19 09:13 04/01/19 09:13 Course - Vital Signs Vital signs: Temp Pulse Resp BP Pulse Ox 97.9 F 66 20 112/56 L 100 04/01/19 09:13 04/01/19 09:13 04/01/19 09:13 04/01/19 09:13 04/01/19 09:13 Doctor's Discharge - Discharge Referrals: SHARAN RUDD MD [Primary Care Provider] - Follow up as needed
[2019-04-01 09:56] LABS: ABSOLUTE LYMPHOCYTES (AUTO) 1.1 10^3/uL (0.5-4.7); ABSOLUTE MONOCYTES (AUTO) 0.2 10^3/uL (0.1-1.4); ABSOLUTE NEUT (AUTO) 2.2 10^3/uL (1.7-8.2); BASOPHILS % (AUTO) 0.3 % (0-2); HEMOGLOBIN 14.2 g/dL (12.0-15.5); MEAN CORPUSCULAR HEMOGLOBIN 30.1 pg (27.0-33.4); MEAN CORPUSCULAR HGB CONC 33.9 g/dL (32.0-36.0); MEAN CORPUSCULAR VOLUME 89 fl (80-97); MONOCYTES % (AUTO) 7.1 % (3-13); PLATELET COUNT 159 10^3/uL (150-450); RED BLOOD COUNT 4.72 10^6/uL (3.72-5.28); RED CELL DISTRIBUTION WIDTH 14.1 % (11.5-14.0); SEGMENTED NEUTROPHILS % (AUTO) 61.6 % (42-78); TOTAL CELLS COUNTED % (AUTO) 100 %; WHITE BLOOD COUNT 3.5 10^3/uL (4.0-10.5)
--- NOTE | 2019-04-01 10:13 | RADIOLOGY REPORT (SQ) ---
EXAM DESCRIPTION: CHEST 2 VIEWS COMPLETED DATE/TIME: 04/01/2019 9:57 am REASON FOR STUDY: syncope COMPARISON: 07/20/2017 EXAM PARAMETERS: NUMBER OF VIEWS: two views TECHNIQUE: Digital Frontal and Lateral radiographic views of the chest acquired. RADIATION DOSE: NA LIMITATIONS: none FINDINGS: LUNGS AND PLEURA: No opacities, masses or pneumothorax. No pleural effusion. MEDIASTINUM AND HILAR STRUCTURES: No masses or contour abnormalities. HEART AND VASCULAR STRUCTURES: Heart normal size. No evidence for failure. BONES: No acute findings. HARDWARE: None in the chest. OTHER: No other significant finding. IMPRESSION: NO ACUTE RADIOGRAPHIC FINDING IN THE CHEST. TECHNICAL DOCUMENTATION: JOB ID: [id number] [employer]- All Rights Reserved Reading location - IP/workstation name: [email or web address]
[2019-04-01 10:14] LABS: ALBUMIN 4.2 g/dL (3.5-5.0); ALKALINE PHOSPHATASE 46 U/L (38-126); ANION GAP 8 (5-19); ASPARTATE AMINO TRANSFERASE 27 U/L (14-36); BILIRUBIN,DIRECT 0.1 mg/dL (0.0-0.4); BILIRUBIN,TOTAL 1.3 mg/dL (0.2-1.3); BLOOD UREA NITROGEN 15 mg/dL (7-20); CALCIUM 9.2 mg/dL (8.4-10.2); CARBON DIOXIDE 30 mmol/L (22-30); CHLORIDE 103 mmol/L (98-107); GLUCOSE 80 mg/dL (75-110); TOTAL PROTEIN 7.1 g/dL (6.3-8.2)
[2019-04-01] MEDS ORDERED: ONDANSETRON HCL INJ/PF 4 MG/2 ML SDV IV ONE (10:36)
--- NOTE | 2019-04-01 10:43 | ER Document Report ---
ED General - General Chief Complaint: Passed Out Prior to Arrival Stated Complaint: NAUSEA,DIZZY Time Seen by Provider: 04/01/19 09:28 Primary Care Provider: SHARAN RUDD MD [Primary Care Provider] - Follow up as needed Mode of Arrival: Ambulatory TRAVEL OUTSIDE OF THE [place] IN LAST 30 DAYS: No - HPI Notes: Dai Villa is a 28-year-old female presenting today with a complaint of recurrent syncopal episode. This is a generally healthy young woman who was here 10 days ago after vomiting several times at home after she got off work and then briefly fainting. At that time she was hypotensive and bradycardic at the time of arrival here and was given normal saline IV bolus with good response. Her EKG was remarkable only for sinus bradycardia. She did receive some atropine at that visit. All of her studies here including comprehensive metabolic profile CBC troponin drug screen and chest x-ray were normal. She was transferred to the service of Dr. Okeefe (cardiology/electrophysiology) at [facility] and apparently underwent inpatient testing for about 3 days and was discharged with what sounds like a suspected diagnosis of POTS. They prescribed theophylline for the patient but she has not yet filled the prescription. They also applied an ambulatory monitor which she continues to use. She has not been back for an outpatient visit yet saying that she has not been able to schedule appointment up to this time. She was apparently on the toilet this morning when she felt weak and had about a 2-minute syncopal episode as she was getting up which sounds very similar to the prior episode. Upon arrival here she was normotensive on the low side with systolic pressure around 100. She was in sinus rhythm about 62. She appeared pale at triage in the provider at triage went ahead and ordered 2 L of normal saline IV bolus. She says she still feels slightly dizzy and nauseated but has no other complaints at this time. Specifically she denies shortness of breath, chest pain or peripheral edema. She denies any trauma from the fall. - Related Data Allergies/Adverse Reactions: No Known Allergies Allergy (Verified 04/01/19 09:16) Home Medications: ibuprofen prn Past Medical History - General Information source: Patient, Relative - Social History Smoking Status: Current Every Day Smoker Chew tobacco use (# tins/day): No Frequency of alcohol use: Rare Drug Abuse: None Family History: None Patient has suicidal ideation: No Patient has homicidal ideation: No Renal/ Medical History: Denies: Hx Peritoneal Dialysis Past Surgical History: Reports: Hx Appendectomy - Immunizations Hx Diphtheria, Pertussis, Tetanus Vaccination: No Review of Systems - Review of Systems Notes: Constitutional: Negative for fever. HENT: Negative for sore throat. Eyes: Negative for visual changes. Cardiovascular: Negative for chest pain. Respiratory: Negative for shortness of breath. Gastrointestinal: Negative for abdominal pain, vomiting or diarrhea. Genitourinary: Negative for dysuria. Musculoskeletal: Negative for back pain. Skin: Negative for rash. Neurological: Syncope as noted in HPI. Negative for headaches, weakness or numbness. 10 point ROS negative except as marked above and in HPI. Physical Exam - Vital signs Vitals: Temp Pulse Resp BP Pulse Ox 97.9 F 66 20 112/56 L 100 04/01/19 09:13 04/01/19 09:13 04/01/19 09:13 04/01/19 09:13 04/01/19 09:13 - Notes Notes: GENERAL: Well-developed well-nourished appearing in no acute distress. SKIN: Good turgor no rashes. HEAD: Normocephalic atraumatic. EYES: PERRLA. Conjunctivae and sclerae clear. EARS: CANALS AND TMS CLEAR. NOSE: CLEAR. MOUTH: Moist mucosa. Good dentition. No stridor or edema. No drooling. NECK: Supple. No masses or thyromegaly. No adenopathy. Carotids 2+ without bruits. No JVD. BACK: Symmetrical without tenderness. CHEST: Respirations unlabored. Breath sounds clear and symmetrical. HEART: Regular rhythm. No murmur gallop or rub. ABDOMEN: Soft nontender without masses, organomegaly or rebound. Bowel sounds normally active. No bruits. GENITALIA: Deferred. EXTREMITIES: No edema. No calf tenderness. Cap refill less than 1.5 seconds. Dorsalis pedis and posterior tibial pulses 3+ and symmetrical. NEUROLOGICAL: GCS 15. Alert and oriented x3. Normal gait. Fluent speech. Cranial nerves II through XII intact. Sensorimotor and cerebellar normal. Normal tone. Psychiatric: Anxious. Course - Re-evaluation Re-evalutation: 04/01/19 10:44 We are going to repeat labs here again today including CBC, comprehensive metabolic profile, troponin. I am also going to add a Lyme titer. I questioned her about tick exposure and she does not recall any history of this. Patient will remain on cardiac monitoring for the time being here. After her labs have been resulted I will make contact with Dr. Okeefe. 04/01/19 10:54 I was called back into the room with report from nursing staff that the patient had a brief generalized tonic-clonic seizure lasting about 2 minutes. During this time she was noted on the monitor to have a sinus bradycardia in the 50s. She is no longer seizing upon my examination at this time. She is however postictal. Her O2 saturation is normal on room air. Her blood pressure is 101 systolic and her rate is 72 with normal sinus rhythm on monitor. Her tone is normal. Mother says she is never had a seizure in the past that we know of and is never had a head scan. I am going to go ahead and request a head scan for her and maintain cardiac monitoring. Also rechecked fingerstick blood sugar at bedside and this was 110. 04/01/19 13:[address] negative per radiologist. Patient had recurrent episode of vomiting associated with bradycardia down into the 30s this time and then had a generalized seizure. This lasted approximately 2 minutes. She was given Ativan IV and also given atropine IV. We placed external pacing pads. I have placed a call to Dr. Okeefe at [facility] in [place] to try to coordinate transfer back to their service. 04/01/19 14:51 Case was discussed with Dr. Tamayo at [facility] and he feels she needs to be admitted to their medicine service and [facility]. I have subsequently spoken with Dr. Rukhsana Andersen the hospitalist covering that unit and the patient has been accepted for transfer. We await bed assignment. Patient currently has a heart rate of 100 on the monitor with a blood pressure of 110/70 and she is sleepy postictal but easily arousable. - Vital Signs Vital signs: Temp Pulse Resp BP Pulse Ox 97.9 F 66 17 98/57 L 100 04/01/19 09:13 04/01/19 09:13 04/01/19 12:17 04/01/19 12:17 04/01/19 12:17 - Laboratory Result Diagrams: 04/01/19 09:40 04/01/19 09:40 Laboratory results interpreted by me: 04/01/19 09:40 WBC 3.5 L RDW 14.1 H - Diagnostic Test Radiology reviewed: Reports reviewed - EKG Interpretation by Me EKG shows normal: Sinus rhythm, [place] Rate: Normal When compared to previous EKG there are: Other - Previously noted sinus bradycardia has resolved Critical Care Note - Critical Care Note Total time excluding time spent on procedures (mins): 65 Comments: Patient has had 2 episodes of seizures associated with bradycardia since arrival here. In each case this appears to be a sinus bradycardia that occurs after she has vomiting. Head CT was negative. I gave her Ativan IV. She also received atropine 1 mg IV and we have placed external pacing pads. We are in process of getting patient transferred back to [facility]. Discharge - Discharge Clinical Impression: Seizure, Bradycardia Condition: Fair Disposition: [facility] Referrals: SHARAN RUDD MD [Primary Care Provider] - Follow up as needed
[2019-04-01] MEDS ORDERED: LORAZEPAM INJ 2 MG/1 ML VIAL IV ONE ×2 (10:47→13:35)
--- NOTE | 2019-04-01 12:03 | RADIOLOGY REPORT (SQ) ---
EXAM DESCRIPTION: CT HEAD WITHOUT COMPLETED DATE/TIME: 04/01/2019 11:30 am REASON FOR STUDY: Seizure COMPARISON: None. TECHNIQUE: Axial images acquired through the brain without intravenous contrast. Images reviewed wi th bone, brain and subdural windows. Additional sagittal and coronal reconstructions were generated. Images stored on PACS. All CT scanners at this facility use dose modulation, iterative reconstruction, and/or weight based d osing when appropriate to reduce radiation dose to as low as reasonably achievable (ALARA). [facility]: Dose Right [facility]: CareDose [facility]: Dose Right [facility]: Teradose 4D [facility]: Slime Sandwich RADIATION DOSE: CT Rad equipment meets quality standard of care and radiation dose reduction techniq ues were employed. CTDIvol: 53.2 mGy. DLP: 1017 mGy-cm. mGy. LIMITATIONS: None. FINDINGS: VENTRICLES: Normal size and contour. CEREBRUM: No masses. No hemorrhage. No midline shift. No evidence for acute infarction. Normal gra y/white matter differentiation. No areas of low density in the white matter. CEREBELLUM: No masses. No hemorrhage. No alteration of density. No evidence for acute infarction. EXTRAAXIAL SPACES: No fluid collections. No masses. ORBITS AND GLOBE: No intra- or extraconal masses. Normal contour of globe without masses. CALVARIUM: No fracture. PARANASAL SINUSES: No fluid or mucosal thickening. SOFT TISSUES: No mass or hematoma. OTHER: No other significant finding. IMPRESSION: NORMAL BRAIN CT WITHOUT CONTRAST. EVIDENCE OF ACUTE STROKE: NO. COMMENT: Quality ID # [id number]: Final reports with documentation of one or more dose reduction techniques (e.g., Automated exposure control, adjustment of the mA and/or kV according to patient size, use of iterative reconstruction technique) TECHNICAL DOCUMENTATION: JOB ID: [id number] [employer]- All Rights Reserved Reading location - IP/workstation name: [email or web address]
--- NOTE | 2019-04-01 12:17 | EKG REPORT ---
SEVERITY:- NORMAL ECG - SINUS RHYTHM : Confirmed by: Natali Macedo 01-Apr-2019 12:16:44
[2019-04-01] MEDS ORDERED: LORAZEPAM INJ 2 MG/1 ML VIAL ONE (13:09)
[2019-04-01] MEDS ORDERED: ATROPINE SULFATE INJ 1 MG/1 ML VIAL ONE (13:11)
[2019-04-01] MEDS ORDERED: ATROPINE SULFATE INJ 1 MG/1 ML VIAL IV ONE (13:36)
[2019-04-01 18:08] LABS: APPEARANCE,URINE SLIGHTLY-CLOUDY; BILIRUBIN,URINE NEGATIVE (NEGATIVE); COLOR,URINE YELLOW; GLUCOSE, URINE NEGATIVE (NEGATIVE); KETONES,URINE NEGATIVE (NEGATIVE); PROTEIN,URINE NEGATIVE (NEGATIVE); URINE SPECIFIC GRAVITY 1.013; UROBILINOGEN,URINE NEGATIVE mg/dL (<2.0)
[2019-04-01 19:20] VITALS: BP 100/56
[2019-04-04 15:19] LABS: LYME DISEASE IGM AB <0.80 index (0.00-0.79)
== END 2019-04-01 20:22 | disposition short-term general hospital (02) ==
LOC: ER 09:09
DX: R56.9 Unspecified convulsions (principal); R00.1 Bradycardia, unspecified; R55 Syncope and collapse; R42 Dizziness and giddiness; R11.2 Nausea with vomiting, unspecified; F17.200 Nicotine dependence, unspecified, uncomplicated
CPT/HCPCS: 93005; 99285; 96361; 96374; 96375; 36415; 82962; 85025; 80053; 81001; 84484; 86618 ×2; 86617 ×2; 71046; 70450; 93010; J0461; J2060; J2405; J7030; J7120

== ENCOUNTER 2019-06-09 15:15 | Emergency (ER) | payer SELFPAY ==
[2019-06-09 15:22] VITALS: BP 109/59
[2019-06-09] MEDS ORDERED: LEVETIRACETAM 500 MG TABLET PO ONE (17:03)
--- NOTE | 2019-06-09 17:07 | ER Document Report ---
HPI - HPI Time Seen by Provider: 06/09/19 17:03 Context: CHIEF COMPLAINT: Seizure HPI: 29-year-old female who is being treated currently with neurology for seizures presenting for possible absence type seizure today. Patient was on the phone with the neurology office trying to get her Keppra refilled that she has been out of it for a day and a half and states that she seemed to blackout [facility] through the phone call. States she may have been out for several seconds but picked up her phone again and the nurse was still calling her name. The nurse made her promise to come to the emergency department. Patient denies any complaints at this time. Patient states that she has been worked up several months ago for these types of issues and this seemed typical of the types of seizures she was having. She denies incontinence of urine or bowel denies , denies dysuria or fever. ROS: See HPI - all other systems were reviewed and are otherwise negative Constitutional: no fever Eyes: no drainage, no blurred vision ENT: no runny nose, no sore throat Cardiovascular: no chest pain Resp: no SOB, no cough GI: no vomiting, no diarrhea, no abdominal pain : no dysuria Integumentary: no rash Allergy: no hives Musculoskeletal: no extremity pain or swelling Neurological: no numbness/tingling, no weakness, possible seizure MEDICATIONS: I agree with the patient medications as charted by the RN. ALLERGIES: I agree with the allergies as charted by the RN. PAST MEDICAL HISTORY/PAST SURGICAL HISTORY: Reviewed and agree as charted by RN. SOCIAL HISTORY: Reviewed and agree as charted by RN. FAMILY HISTORY: No significant familial comorbid conditions directly related to patient complaint EXAM: Reviewed vital signs as charted by RN. CONSTITUTIONAL: Alert and oriented and responds appropriately to questions. Well-appearing; well-nourished HEAD: Normocephalic; atraumatic EYES: PERRL; Conjunctivae clear, sclerae non-icteric ENT: normal nose; no rhinorrhea; moist mucous membranes; pharynx without lesions noted, no uvula edema or deviation, no tonsillar hypertrophy, phonation normal NECK: Supple without meningismus; non-tender; no cervical lymphadenopathy, no masses CARD: RRR; no murmurs, no clicks, no rubs, no gallops; symmetric distal pulses RESP: Normal chest excursion without splinting or tachypnea; breath sounds clear and equal bilaterally; no wheezes, no rhonchi, no rales ABD/GI: Normal bowel sounds; non-distended; soft, non-tender, no rebound, no guarding; no palpable organomegaly or masses. BACK: The back appears normal and is non-tender to palpation, there is no CVA tenderness EXT: Normal ROM in all joints; non-tender to palpation; no cyanosis, no effusions, no edema SKIN: Normal color for age and race; warm; dry; good turgor; no acute lesions noted NEURO: Moves all extremities equally; Motor and sensory function intact PSYCH: The patient's mood and manner are appropriate. Grooming and personal hygiene are appropriate. MDM: 29-year-old female presenting for possible seizure. Patient may have had an absence type seizure for several seconds no incontinence. She is out of her Keppra but has a prescription called in for her. I will give her a dose of Keppra here in the emergency department. I did offer further testing including lab work, urinalysis urine patient declined stating she does not have a UTI is not and does not feel she needs these tests at this time. Patient will be discharged home to follow back up with neurology. - REPRODUCTIVE Reproductive: DENIES: : Past Medical History - Social History Smoking Status: Unknown if Ever Smoked Family History: None, Reviewed & Not Pertinent Renal/ Medical History: Denies: Hx Peritoneal Dialysis Past Surgical History: Reports: Hx Appendectomy - Immunizations Hx Diphtheria, Pertussis, Tetanus Vaccination: No Vertical Provider Document - INFECTION CONTROL TRAVEL OUTSIDE OF THE [place] IN LAST 30 DAYS: No Course - Vital Signs Vital signs: Temp Pulse Resp BP Pulse Ox 99.1 F 76 16 109/59 L 100 06/09/19 15:21 06/09/19 15:21 06/09/19 15:21 06/09/19 15:21 06/09/19 15:21 Discharge - Discharge Clinical Impression: Seizure Condition: Stable Disposition: HOME, SELF-CARE Instructions: Seizure, Known Epileptic ([facility]) Additional Instructions: Follow-up with your neurologist for further evaluation and management of your seizures. Return for any concerns. You declined further testing at this time Referrals: SHARAN RUDD MD [Primary Care Provider] - Follow up as needed
== END 2019-06-09 18:48 | disposition home or self-care (01) ==
LOC: ER 15:15
DX: R56.9 Unspecified convulsions (principal)
CPT/HCPCS: 99283